=== PATIENT | male | born 1995 | race African-American/Black ===

== ENCOUNTER 2017-04-20 13:23 | Emergency (ER) | payer OTHER ==
[~2017-04-20] VITALS: Ht 175.3 cm; Wt 113.4 kg
--- NOTE | 2017-04-20 14:16 | ED GI/GU/ABDOMINAL COMPLAINT ---
History of Present Illness General Chief Complaint: Nausea, Vomiting, Diarrhea Stated Complaint: ABDOMINAL PAIN, NVD Source: patient Exam Limitations: no limitations Vital Signs & Intake/Output Vital Signs & Intake/Output Vital Signs Date Time Temp Pulse Resp B/P B/P Pulse O2 O2 Flow FiO2 Mean Ox Delivery Rate 04/20 1655 98.0 75 18 118/72 98 Room Air Room Air 04/20 1624 97.3 76 20 120/73 98 Room Air 04/20 1334 97.2 73 18 114/79 100 Room Air Allergies Coded Allergies: No Known Drug Allergies (Intermediate, NONE 04/20/17) Reconcile Medications No Known Home Medications Triage Note: C/O CHEST PAIN AND ABDOMINAL PAIN, NAUSEA, DIARRHEA VOMITING Triage Nurses Notes Reviewed? yes Onset: Abrupt Duration: day(s): (2), intermittent Timing: recent history Quality/Severity: moderate, sharpness No Modifying Factors: none HPI: 21-year-old male comes in with multiple complaints. Patient reports that he has been experiencing nausea vomiting diarrhea and abdominal pain since yesterday. Patient has had associated chest pain as well. Multiple episodes of vomiting and diarrhea. Denies any past medical history. Pain in abdomen is located in left lower side. Denies any other associated symptoms. Denies any fever. Denies any lightheaded dizziness shortness of breath. (NATONIO AGUILERA) Past History Travel History Traveled to [place] past 21 day No Medical History Any Pertinent Medical History? see below for history Neurological: NONE EENT: NONE Cardiovascular: NONE Respiratory: NONE Gastrointestinal: NONE Hepatic: NONE Renal: NONE Musculoskeletal: NONE Psychiatric: NONE Endocrine: NONE Surgical History Surgical History: non-contributory Psychosocial History What is your primary language Persian Tobacco Use: Never used ETOH Use: denies use Family History Hx Contributory? No (ANTONIO AGUILERA) Review of Systems Review of Systems Constitutional: Reports: no symptoms. EENTM: Reports: no symptoms. Respiratory: Reports: no symptoms. Cardiovascular: Reports: see HPI. GI: Reports: see HPI. Genitourinary: Reports: no symptoms. Musculoskeletal: Reports: no symptoms. Skin: Reports: no symptoms. Neurological/Psychological: Reports: no symptoms. Hematologic/Endocrine: Reports: no symptoms. Immunologic/Allergic: Reports: no symptoms. All Other Systems: Reviewed and Negative (ANTONIO AGUILERA) Physical Exam Physical Exam General Appearance: well developed/nourished, alert, awake Head: atraumatic, normal appearance Eyes: Bilateral: normal appearance, EOMI. Ears, Nose, Throat, Mouth: hearing grossly normal, moist mucous membrane Neck: normal inspection, full range of motion Respiratory: normal breath sounds, no respiratory distress Cardiovascular: regular rate/rhythm Gastrointestinal: soft, tenderness (mild llq ), no guarding, no rebound tenderness Back: normal inspection Extremities: normal range of motion Neurologic/Psych: awake, alert, oriented x 3, normal gait, normal mood/affect Skin: intact, normal color Core Measures ACS in differential dx? No Severe Sepsis Present: No Septic Shock Present: No (ANTONIO AGUILERA) Progress Differential Diagnosis: appendicitis, biliary colic, cholecystitis, diverticulitis, gastritis, ischemic bowel, pancreatitis, prostatitis, peptic ulcer, PUD/GERD, perforated viscous, ureterolithiasis, urinary retention, UTI/ pyelo, acute AR, pulmonary embolism, bronchitis, costochondritis, Plan of Care: Orders Procedure Date/time Status Telemetry/Latex Foam Worker 04/20 1416 Active URINALYSIS 04/20 1415 Complete TROPONIN LEVEL 04/20 1410 Complete LIPASE 04/20 1410 Complete COMPREHENSIVE METABOLIC PANEL 04/20 1410 Complete CBC WITHOUT DIFFERENTIAL 04/20 1410 Complete AMYLASE 04/20 1410 Complete EKG 04/20 1335 Active Laboratory Tests 04/20/17 1605: Urine Color YEL, Urine Clarity CLEAR, Urine pH 6.0, Ur Specific [place] 1.025, Urine Protein NEG, Urine Ketones 15 H, Urine Nitrite NEG, Urine Bilirubin NEG, Urine Urobilinogen 0.2, Ur Leukocyte Esterase NEG, Ur Microscopic SEDIMENT EXAMINED, Urine RBC RARE, Urine WBC 1-3 H, Ur Epithelial Cells FEW, Urine Bacteria FEW H, Urine Hemoglobin TRACE-INTACT H, Urine Glucose NEG 04/20/17 1425: Anion Gap 9, Estimated GFR > 60, BUN/Creatinine Ratio 15.6, Glucose 79, Calcium 9.5, Total Bilirubin 0.7, AST 27, ALT 48, Alkaline Phosphatase 79, Troponin I < 0.01, Total Protein 7.2, Albumin 4.2, Globulin 3.0, Albumin/Globulin Ratio 1.4, Amylase 57, Lipase 92, CBC w Diff NO MAN DIFF REQ, RBC 5.67, MCV 72.9 L, MCH 23.9 L, RDW 15.8 H, MPV 8.6, Gran % 71.6, Lymphocytes % 18.8 L, Monocytes % 8.2, Eosinophils % 1.2, Basophils % 0.2, Absolute Granulocytes 7.0 H, Absolute Lymphocytes 1.8, Absolute Monocytes 0.8 H, Absolute Eosinophils 0.1, Absolute Basophils 0, PUBS MCHC 32.7 L Diagnostic Imaging: Viewed by Me: Radiology Read. Discussed w/RAD: Radiology Read. Radiology Impression: SERVICE DATE: 04/20/17 EXAM TYPE: RAD - XRY-CHEST XRAY, PA AND LATERAL EXAMINATION: CHEST 2 VIEWS CLINICAL INFORMATION: Chest pain. COMPARISON: None. TECHNIQUE: PA and lateral views of the chest were obtained. FINDINGS: The cardiac silhouette is not enlarged. The mediastinal and hilar contours are unremarkable. There are neither pleural effusions nor pneumothoraces. There are no consolidations. The osseous structures are unremarkable. IMPRESSION: No evidence for acute disease. DICTATED BY: GABRIELE GRANDE MD DATE/TIME DICTATED:04/20/171510 OPTICAL LABORATORY TECHNICIAN:KVNG DATE/TIME TRANSCRIBED:04/20/171510 Initial ED EKG: normal intervals, normal p-waves, normal sinus rhythm, rate (71) Comments: 04/20/2017 4:59:19 PM Upon reevaluating the patient he has no symptoms. He wants to leave. He reports he feels significantly better. Symptoms go along mostly with a viral illness. - perc score and low probability as well as criteria. No suspicion for pulmonary embolism at this time. Negative troponin. Patient has been in the room playing around with the children in the room. Walking around. He does not appear to be any distress. He has been laughing and giggling in the room. Reevaluated multiple times. He continued to remain in no apparent distress. Patient was told to return to the emergency room immediately if any other concerns worsening symptoms. (ANTONIO AGUILERA) Departure Departure Disposition: HOME OR SELF CARE Condition: Stable Clinical Impression Primary Impression: Abdominal pain Secondary Impressions: Atypical chest pain Referrals: PATIENT HAS NO PRIMARY CARE DR (PCP/Family) Additional Instructions: Drink plenty of fluids. Follow-up with her primary care doctor. Return if any concerns worsening symptoms. It has been advised that you stay here for further observation but due to the fact that your chest pain has resolved and you have no current symptoms she can follow-up closely with your primary care doctor. Please go over all results of today's visit with your primary care doctor. Contact your primary care doctor to let them know you were here in the emergency room. There may be nonspecific findings which may not be related to your visit today here in the emergency room but may require further evaluation and chronic monitoring by your primary care doctor. If you had a laceration today the chance of foreign body always remains. You should follow-up with your primary care doctor for recheck in 3-5 days for a wound check. If you had an x-ray done there is a chance that a fracture could have been missed on initial read and you should follow-up with your primary care doctor for repeat x-rays if symptoms persist. If your blood pressure was elevated here in the emergency room please have rechecked by her primary care doctor within the next 48 hours by your primary care doctor. If you were prescribed a narcotic here in the emergency room or any type of controlled substances you're not allowed to drive while taking this medication or operate any type of heavy machinery. Narcotics can make you feel lightheaded dizziness nausea and can cause constipation. You may need to black pickler a stool softener. Thank you for choosing [facility] emergency room. Please return to the emergency room immediately if you have any other concerns worsening of symptoms. Departure Forms: Customer Survey General Discharge Information Prescriptions: Current Visit Scripts No Known Home Medications (ANTONIO AGUILERA) PA/CERAMICS TEACHER Co-Sign Statement Statement: ED Attending supervision documentation- [] I saw and evaluated the patient. I have also reviewed all the pertinent lab results and diagnostic results. I agree with the findings and the plan of care as documented in the PA's/CERAMICS TEACHER's documentation. [X] I have reviewed the ED Record and agree with the PA's/CERAMICS TEACHER's documentation. [] Additions or exceptions (if any) to the PAs/CERAMICS TEACHER's note and plan are summarized below: [] (DORA MAGANA,ANDRE)
[2017-04-20 14:33] LABS: ABSOLUTE BASOPHIL COUNT 0 /CUMM (0.0-0.2); ABSOLUTE EOSINOPHIL COUNT 0.1 /CUMM (0.0-0.7); ABSOLUTE LYMPH COUNT 1.8 /CUMM (1.2-3.4); ABSOLUTE MONOCYTE COUNT 0.8 /CUMM (0.10-0.60); BASOPHIL % 0.2 % (0.0-2.0); EOSINOPHIL % 1.2 % (0-5); GRANULOCYTE % 71.6 % (42.2-75.2); HEMATOCRIT 41.4 % (42-52); MEAN CORPUSCULAR HGB 23.9 PG (27.0-31.0); MEAN CORPUSCULAR HGB CONC 32.7 G/DL (33.0-37.0); MEAN CORPUSCULAR VOLUME 72.9 FL (80.0-94.0); MEAN PLATELET VOLUME 8.6 FL (7.4-10.4); PLATELET COUNT 221 /CUMM (130-400); RBC DISTRIBUTION WIDTH 15.8 % (11.5-14.5); RED BLOOD CELL CT 5.67 /CUMM (4.70-6.10); WHITE BLOOD CELL COUNT 9.8 /CUMM (4.8-10.8)
--- NOTE | 2017-04-20 15:15 | RADIOLOGY REPORT ---
EXAMINATION: CHEST 2 VIEWS CLINICAL INFORMATION: Chest pain. COMPARISON: None. TECHNIQUE: PA and lateral views of the chest were obtained. FINDINGS: The cardiac silhouette is not enlarged. The mediastinal and hilar contours are unremarkable. There are neither pleural effusions nor pneumothoraces. There are no consolidations. The osseous structures are unremarkable. IMPRESSION: No evidence for acute disease.
[2017-04-20 16:55] VITALS: BP 118/72
== END 2017-04-20 17:01 ==
LOC: ERH 13:23
PROVIDERS: Physician Assistant Medical
DX: R07.89 Other chest pain (principal); R10.32 Left lower quadrant pain
CPT/HCPCS: 81001; 93005; 93010; 96374; 96375; J2405

== ENCOUNTER 2017-04-25 17:50 | Emergency (ER) | payer OTHER ==
[~2017-04-25] VITALS: Ht 175.3 cm; Wt 108.9 kg
--- NOTE | 2017-04-25 18:22 | ED CARDIAC/CP/PALPITATIONS ---
History of Present Illness General Chief Complaint: Chest Pain Stated Complaint: CP, X 2 WEEKS Source: patient, old records Exam Limitations: no limitations Vital Signs & Intake/Output Vital Signs & Intake/Output Vital Signs Date Time Temp Pulse Resp B/P B/P Pulse O2 O2 Flow FiO2 Mean Ox Delivery Rate 04/25 1938 97.9 70 18 115/72 97 Room Air 04/25 1839 Room Air 04/25 1819 97.6 73 15 110/70 96 Room Air Room Air Allergies Coded Allergies: No Known Allergies (04/25/17) Reconcile Medications Ibuprofen 800 MG TABLET 1 TAB PO TID PRN pain Triage Note: PT TO ED FOR C/C OF CHEST PAIN THAT HAS BEEN GOING ON FOR THE LAST WEEK. TODAY IT GOT WORSE. STABBING PAIN THAT STARTED WHEN PT WAS TRYING TO GET TO SLEEP. Triage Nurses Notes Reviewed? yes Onset: Abrupt Duration: week(s): (1), constant Timing: recent history Quality/Severity: moderate, severe, stabbing Location: substernal Radiation: no radiation Activities at Onset: none Aspirin Today: 81 mg x 1 Associated Symptoms: DENEIS HPI: 21-year-old male with no medical history presents to ER for evaluation with his mother complaining of a one-week history of substernal intermittent sharp stabbing chest pain. He was seen her last week for similar symptoms at which time he had nausea vomiting since resolved. He states he is still intermittently having episodes of pain. He denies any heavy lifting trauma or fall. No shortness of breath cough hemoptysis. Pain nausea vomiting diarrhea. No cough office this recent travel or immobility leg swelling. Has not taken anything for symptoms. Symptoms are not worse with change in position movement or eating. He does not smoke he denies alcohol or drug use (BARBARA DEL ROSARIO) Past History Travel History Traveled to [place] past 21 day No Medical History Any Pertinent Medical History? none Neurological: NONE EENT: NONE Cardiovascular: NONE Respiratory: NONE Gastrointestinal: NONE Hepatic: NONE Renal: NONE Musculoskeletal: NONE Psychiatric: NONE Endocrine: NONE Blood Disorders: NONE Cancer(s): NONE DIRECTOR OF UNDERGRADUATE ADMISSIONS/Reproductive: NONE Surgical History Surgical History: non-contributory Psychosocial History What is your primary language Indonesian Tobacco Use: Never used ETOH Use: denies use Illicit Drug Use: denies illicit drug use Family History Hx Contributory? No (BARBARA DEL ROSARIO) Review of Systems Review of Systems Constitutional: Reports: see HPI. All Other Systems: Reviewed and Negative Comments Review of systems: See HPI, All other systems negative. Constitutional, no chills no fever, no malaise HEENT: No visual changes no sore throat no congestion Cardiovascular: chest pain , no palpitation Skin: no rashes, no change in skin Respiratory: No dyspnea no cough no sputum GI: nausea vomiting, no diarrhea, : No dysuria Muscle skeletal: No joint pain, no joint swelling, no back pain, no neck pain, Neurologic:no headache Psych: No stress Heme/endocrine: No bruising Immunology: No lymphadenopathy (BARBARA DEL ROSARIO) Physical Exam Physical Exam General Appearance: well developed/nourished, no apparent distress, alert, awake Cardiovascular: regular rate/rhythm Comments: Well-developed well-nourished person in no acute distress HEENT: Normal EENT exam; PERRL, EOMI, HEAD is atraumatic. moist mucous membranes. Neck: Supple, no lymphadenopathy, normal range of motion Back: Nontender, no CVA tenderness. Full range of motion Cardiovascular: Regular rate and rhythms no murmurs rubs Respiratory: Chest tender.There were no bony deformities, no asymmetry. No respiratory distress. Patient speaking in full complete sentences. Breath sounds clear to auscultation bilaterally: NO W/R/R Abdomen: Soft, nontender nondistended, no appreciable organomegaly. Normal bowel sounds. No rebound/guarding, N Extremity: No edema, full range of motion of extremities Neuro: Alert oriented x3, motor sensory normal, There were no obvious focal neurologic abnormalities. Skin: No appreciable rash on exposed skin, skin is warm and dry. Psych: Mood and affect is normal, memory and judgment is normal. Core Measures ACS in differential dx? Yes Severe Sepsis Present: No Septic Shock Present: No All Positive = PERC Ruled Out: Positive: age < 50 years, heart rate < 100 bpm, O2 sat > 94%, no hemoptysis, no hormone use, no prior DVT or PE, no unilateral leg swellin, no surgery/trauma w/ in 4w. (BARBARA DEL ROSARIO) Progress Differential Diagnosis: AMI, aortic dissection, atrial fibrillation, musculoskeletal pain, myocarditis, pancreatitis, pericarditis, pneumonia, pneumothorax, pulmonary embolism, unstable angina Plan of Care: Orders Procedure Date/time Status TROPONIN LEVEL 06/04 1822 Complete COMPREHENSIVE METABOLIC PANEL 04/25 1822 Complete CBC WITHOUT DIFFERENTIAL 04/25 1822 Complete EKG 04/25 1752 Active Laboratory Tests 04/25/171836: Anion Gap 11, Estimated GFR > 60, BUN/Creatinine Ratio 14.4, Glucose 82, Calcium 9.4, Total Bilirubin 0.3, AST 27, ALT 55, Alkaline Phosphatase 72, Troponin I < 0.01, Total Protein 7.3, Albumin 4.3, Globulin 3.0, Albumin/Globulin Ratio 1.4, CBC w Diff NO MAN DIFF REQ, RBC 5.80, MCV 74.3 L, MCH 23.8 L, RDW 15.5 H, MPV 9.2, Gran % 60.3, Lymphocytes % 25.0, Monocytes % 11.6 H, Eosinophils % 2.4, Basophils % 0.7, Absolute Granulocytes 5.8, Absolute Lymphocytes 2.4, Absolute Monocytes 1.1 H, Absolute Eosinophils 0.2, Absolute Basophils 0.1, PUBS MCHC 32.0 L Labs ordered old records reviewed patient declining anything for pain when offered old records reviewed including the x-ray from last week perC negative. Patient denies any symptoms at this time Repeat evaluation patient again denying any complaints I discussed with the patient at length all of their results. I had an extensive conversation regarding need for close follow up with their primary care physician this week as well as return precautions. I answered all of their questions, they feel comfortable with the plan and follow-up care. I discussed with the patient/family the medications that they will receive. I gave them signs and symptoms that could indicate an adverse reaction. I have advised them to limit their activities until they can see how they respond to the medication. (BARBARA DEL ROSARIO) Initial ED EKG: normal intervals, normal p-waves, normal QRS complex, normal sinus rhythm (70) Prior EKG: unchanged (04/20/17) (BARBARA DEL ROSARIO) Departure Departure Disposition: HOME OR SELF CARE Condition: Stable Clinical Impression Primary Impression: Costochondritis Referrals: PATIENT HAS NO PRIMARY CARE DR (PCP/Family) JORI GOMEZ MD Additional Instructions: rest, ibuprofen 800mg every 8 hours. follow up with pmd dr gomez this week. return with any concerns this was sent to [facility] Departure Forms: Customer Survey General Discharge Information Prescriptions: Current Visit Scripts Ibuprofen 1 TAB PO TID PRN pain #30 TAB (BARBARA DEL ROSARIO) PA/AUTO TUNE UP MECHANIC Co-Sign Statement Statement: ED Attending supervision documentation- [] I saw and evaluated the patient. I have also reviewed all the pertinent lab results and diagnostic results. I agree with the findings and the plan of care as documented in the PA's/AUTO TUNE UP MECHANIC's documentation. [x] I have reviewed the ED Record and agree with the PA's/AUTO TUNE UP MECHANIC's documentation. [] Additions or exceptions (if any) to the PAs/AUTO TUNE UP MECHANIC's note and plan are summarized below: [] (GLORIA MAGANA,AMBER Fraser) Critical Care Note Critical Care Note Critical Care Time: non-applicable (BARBARA DEL ROSARIO)
[2017-04-25 19:03] LABS: ABSOLUTE BASOPHIL COUNT 0.1 /CUMM (0.0-0.2); ABSOLUTE EOSINOPHIL COUNT 0.2 /CUMM (0.0-0.7); ABSOLUTE GRANULOCYTE CT 5.8 /CUMM (1.4-6.5); ABSOLUTE LYMPH COUNT 2.4 /CUMM (1.2-3.4); ABSOLUTE MONOCYTE COUNT 1.1 /CUMM (0.10-0.60); BASOPHIL % 0.7 % (0.0-2.0); EOSINOPHIL % 2.4 % (0-5); GRANULOCYTE % 60.3 % (42.2-75.2); HEMATOCRIT 43.1 % (42-52); MEAN CORPUSCULAR HGB 23.8 PG (27.0-31.0); MEAN CORPUSCULAR VOLUME 74.3 FL (80.0-94.0); MEAN PLATELET VOLUME 9.2 FL (7.4-10.4); PLATELET COUNT 227 /CUMM (130-400); RBC DISTRIBUTION WIDTH 15.5 % (11.5-14.5); WHITE BLOOD CELL COUNT 9.7 /CUMM (4.8-10.8)
[2017-04-25 19:38] VITALS: BP 115/72
[2017-04-25] MEDS ORDERED: IBUPROFEN800 M1 PO (19:41)
== END 2017-04-25 19:51 ==
LOC: ERH 17:50
PROVIDERS: Physician Assistant Medical
DX: M94.0 Chondrocostal junction syndrome [Tietze] (principal); R07.89 Other chest pain
CPT/HCPCS: 93005; 93010